=== PATIENT | male | born 1990 | race Caucasian/White ===

== ENCOUNTER 2021-11-25 08:12 | Inpatient (IN) | payer MEDICAID ==
[~2021-11-25] VITALS: Ht 170.2 cm; Wt 79.0 kg
[2021-11-25 18:10] VITALS: BP 126/81
[2021-11-25] MEDS: LORazepam 2 MG TABLET PO PRN (18:12)
[2021-11-25] MEDS: HALOPERIDOL 5 MG TABLET PO PRN (18:12)
[2021-11-26 05:23] VITALS: BP 119/76
[2021-11-26 07:30] LABS: BASOPHILS % (AUTO) 0.8 % (0.0-2.0); EOSINOPHILS % (AUTO) 3.5 % (1.0-6.0); HEMATOCRIT 38.9 % (41-53); HEMOGLOBIN 13.5 g/dL (13.5-17.5); LYMPHOCYTES # (AUTO) 1.8 K/uL (1.0-4.8); LYMPHOCYTES % (AUTO) 30.1 % (22.0-44.0); MEAN CORPUSCULAR HEMOGLOBIN 35.1 pg (26.0-34.0); MEAN CORPUSCULAR HGB CONC 34.7 G/dL (31.0-37.0); MEAN CORPUSCULAR VOLUME 101 fL (80-100); MONOCYTES # (AUTO) 0.3 K/uL (0.1-1.0); MONOCYTES % (AUTO) 5.5 % (2.0-9.0); NEUTROPHILS # (AUTO) 3.7 K/uL (1.8-7.7); NEUTROPHILS % (AUTO) 60.1 % (40.0-70.0); PLATELET COUNT (AUTO) 119 K/uL (150-450); RED BLOOD CELL COUNT(AUTO) 3.84 MIL/uL (4.50-5.90); RED CELL DISTRIBUTION WIDTH 14.2 % (11.5-14.5)
[2021-11-26 07:36] LABS: HEMOGLOBIN A1C 4.2 % (3.8-5.6)
[2021-11-26 07:53] LABS: ALANINE AMINOTRANSFERASE 140 U/L (12-78); ALBUMIN 3.5 g/dL (3.4-5.0); ALKALINE PHOSPHATASE 74 U/L (46-116); ANION GAP 8 mmol/L (8-16); ASPARTATE AMINOTRANSFERASE 108 U/L (15-37); BILIRUBIN,TOTAL 0.9 mg/dL (0.1-1.0); CARBON DIOXIDE 30 mmol/L (22-29); CHLORIDE 107 mmol/L (98-107); CHOL/HDL RATIO 4.9 (4.2-7.3); CHOLESTEROL 181 mg/dL (131-200); CREATININE 1.21 mg/dL (0.60-1.30); GLOMERULAR FILTR. RATE CALC > 60 mL/min (>60); GLUCOSE,RANDOM 121 mg/dL (70-110); HDL CHOLESTEROL 37 mg/dL (40-60); LDL CHOL (CALC.) 94 mg/dL (0-130); POTASSIUM 4.1 mmol/L (3.5-5.1); SODIUM SERUM 145 mmol/L (136-145); TOTAL PROTEIN, SERUM 6.7 g/dL (6.4-8.2); TRIGLYCERIDES 252 mg/dL (15-150); UREA NITROGEN, BLOOD 17 mg/dL (7-18)
[2021-11-26 08:20] LABS: FREE T4 (FREE THYROXINE) 0.78 ng/dL (0.76-1.46); THYROID STIMULATING HORMONE 1.86 uIU/mL (0.36-3.74)
[2021-11-26] MEDS: NICOTINE POLACRILEX 2 MG LOZENGE PO PRN ×2 (09:47→17:09)
[2021-11-26] MEDS: LORazepam 2 MG TABLET PO PRN ×2 (09:47→17:09)
[2021-11-26] MEDS: HALOPERIDOL 5 MG TABLET PO PRN ×2 (09:47→17:09)
[2021-11-26 09:57] VITALS: BP 117/71
[2021-11-26] MEDS: SERTRALINE HCL 100 MG TABLET PO SCH (10:36)
[2021-11-26 16:24] VITALS: BP 122/75
[2021-11-26] MEDS: ZOLPIDEM TARTRATE 10 MG TABLET PO PRN (20:30)
[2021-11-26] MEDS: QUEtiapine FUMARATE 200 MG TABLET PO SCH (20:30)
[2021-11-27 05:08] VITALS: BP 105/66
[2021-11-27 08:36] VITALS: BP 114/60
[2021-11-27] MEDS: HALOPERIDOL 5 MG TABLET PO PRN ×2 (08:38→17:23)
[2021-11-27] MEDS: LORazepam 2 MG TABLET PO PRN ×2 (08:38→17:23)
[2021-11-27] MEDS: SERTRALINE HCL 100 MG TABLET PO SCH (08:38)
[2021-11-27] MEDS: NICOTINE POLACRILEX 2 MG LOZENGE PO PRN ×2 (10:30→17:23)
[2021-11-27 16:01] VITALS: BP 122/68
[2021-11-27] MEDS: ZOLPIDEM TARTRATE 10 MG TABLET PO PRN (20:53)
[2021-11-27] MEDS: QUEtiapine FUMARATE 200 MG TABLET PO SCH (20:53)
[2021-11-28 05:05] VITALS: BP 117/67
[2021-11-28 08:28] VITALS: BP 99/59
[2021-11-28] MEDS: SERTRALINE HCL 100 MG TABLET PO SCH (09:18)
[2021-11-28] MEDS: LORazepam 2 MG TABLET PO PRN (09:22)
[2021-11-28] MEDS: HALOPERIDOL 5 MG TABLET PO PRN (09:22)
[2021-11-28] MEDS: NICOTINE POLACRILEX 2 MG LOZENGE PO PRN (09:23)
[2021-11-28] MEDS ORDERED: QUET200T PO (13:31)
[2021-11-28] MEDS ORDERED: SERT-162 PO (13:32)
[2021-11-29] MEDS ORDERED: SERT-440 PO (06:49)
[2021-11-29] MEDS ORDERED: QUET200T30 PO (06:49)
== END 2021-11-28 14:00 | disposition home or self-care (01) | DRG 750 ==
LOC: B3A 17:38
PROVIDERS: ADMIT Psychiatry & Neurology Psychiatry; ATTEND Psychiatry & Neurology Psychiatry
DX: F25.1 Schizoaffective disorder, depressive type (principal); D69.6 Thrombocytopenia, unspecified; K75.9 Inflammatory liver disease, unspecified; F10.10 Alcohol abuse, uncomplicated; F15.10 Other stimulant abuse, uncomplicated; F43.10 Post-traumatic stress disorder, unspecified; D64.9 Anemia, unspecified; R74.01 Elevation of levels of liver transaminase levels; Y90.9 Presence of alcohol in blood, level not specified; Z91.51 Personal history of suicidal behavior; Z79.899 Other long term (current) drug therapy; Z20.822 Contact with and (suspected) exposure to COVID-19
CPT/HCPCS: 80053; 80061; 83036; 84439; 84443; 85025; Q9967